=== PATIENT | male | born 1960 | race Caucasian/White ===

== ENCOUNTER 2018-12-30 13:51 | Inpatient (IN) | payer MEDICAID, SELFPAY ==
[~2018-12-30] VITALS: Ht 180.3 cm; Wt 89.9 kg
[~2018-12-30 13:51] MED LIST: ETOMIDATE 20 MG/10 ML ONE; PROPOFOL 10 MG/ML, 100ML IV ONE; PROPOFOL 10 MG/ML, 20ML ONE; SUCCINYLCHOLINE 20 MG/ML, 10ML ONE; VECURONIUM 10 MG ONE
--- NOTE | 2018-12-30 14:15 | NUR ---
PT BIB EMS ACCOMPANIED BY LAW ENFORCEMENT FOR SI AND OVERDOSE. PER EMS PT CONSUMED SERTRALINE 50 MG 100 TABS AND CLONAZEPAM 1 MG 45 TABS W FILL DATES ON 12/26/18. BOTTLES EMPTY. PT WAS COMBATIVE AND VIOLENT W LAW ENFORCEMENT, PT RESTRAINED. ABRASION TO RIGHT UPPER ARM AND BACK. PT VS STABLE IN ROUTE, MEDICATIONS GIVEN, 2 VERSED, 300 CODEINE. PT ON GURNEY W RESTRAINTS. PT IS AROUSABLE, BUT FALLS ASLEEP QUICKLY, MUMBLES WORDS. VS STABLE. MD AT BEDSIDE. PANTS AND BELT IN BELONGINGS BAG. PT ON LEGAL HOLD. PT TRANSFERED TO TRAUMA ROOM Addendum: 12/30/18 at 1454 by [facility] GAVE 300 MG OF KETAMINE, NOT CODEINE. ALLERGY TO CODEINE.
--- NOTE | 2018-12-30 14:15 | NUR ---
PT UNCOOPERATIVE AND THRASHING. PT PLACED ON ENDOSCOPY NURSE. PER MD INTUBATE DUE TO DRUG OD. 20MG IV ATOMODATE GIVEN BY MD, 100MG SUCCHOLINE IV GIVEN. 8 ET TUBE, 24CM AT THE LIP, TUBE CHECKED AND SECURED BY RT BRASHER.
[2018-12-30] MEDS: ALBUTEROL/IPRATROPIUM 2.5MG/0.5MG, 3 ML INLINE SCH ×3 (14:18→23:00)
[2018-12-30] MEDS ORDERED: PROPOFOL 100 ML IV SCH (14:30)
[2018-12-30] MEDS ORDERED: SUCCINYLCHOLINE 20 MG/ML, 10ML IV ONE (14:30)
[2018-12-30] MEDS ORDERED: ETOMIDATE 20 MG/10 ML IVPush ONE (14:30)
[2018-12-30] MEDS ORDERED: PROPOFOL 10 MG/ML, 20ML IVPush ONE (14:30)
[2018-12-30] MEDS ORDERED: FENTANYL PF 100 MCG/2ML ONE (14:37)
[2018-12-30 14:47] LABS: BASOPHILS # (AUTO) 0.06 x10^3/uL (0-0.1); BASOPHILS % (AUTO) 1 % (0-1); EOSINOPHILS # (AUTO) 0.13 x10^3/uL (0-0.4); EOSINOPHILS % (AUTO) 1 % (1-7); LYMPHOCYTES # (AUTO) 2.15 x10^3/uL (1-3.4); LYMPHOCYTES % (AUTO) 21 % (22-44); MD NO; MEAN CORPUSCULAR HEMOGLOBIN 36.1 pg (27.5-34.5); MEAN CORPUSCULAR HGB CONC 33.8 g/dL (33.2-36.2); MEAN CORPUSCULAR VOLUME 106.8 fL (81-97); MEAN PLATELET VOLUME 7.2 fL (7.4-10.4); MONOCYTES # (AUTO) 0.64 x10^3/uL (0.2-0.8); MONOCYTES % (AUTO) 6 % (2-9); NEUTROPHILS # (AUTO) 7.13 x10^3/uL (1.8-6.8); NEUTROPHILS % (AUTO) 71 % (42-75); PLATELET COUNT 259 x10^3/uL (130-400); RED BLOOD COUNT 5.34 x10^6/uL (4.38-5.82); RED CELL DISTRIBUTION WIDTH 14.7 % (9.4-14.8)
[2018-12-30 14:54] LABS: ALBUMIN 3.5 g/dL (3.4-5.0); ANION GAP 4 mmol/L (5-15); CALCIUM 8.4 mg/dL (8.5-10.1); CHLORIDE 115 mmol/L (98-107)
[2018-12-30 14:58] LABS: AMPHETAMINE SCREEN, URINE Negative (Negative); BARBITURATE SCREEN, URINE Negative (Negative); BENZODIAZEPINE SCREEN, URINE Positive (Negative); CANNABINOID SCREEN, URINE Positive (Negative); COCAINE SCREEN, URINE Negative (Negative); METHADONE SCREEN, URINE Negative (Negative); OPIATE SCREEN, URINE Negative (Negative)
[2018-12-30 14:59] LABS: ALANINE AMINOTRANSFERASE 29 U/L (12-78); ALKALINE PHOSPHATASE 61 U/L (45-117); BILIRUBIN,TOTAL 0.4 mg/dL (0.2-1.0); CREATININE 0.75 mg/dL (0.7-1.3); SALICYLATE LEVEL 5.5 mg/dL (2.8-20.0); TOTAL PROTEIN 6.9 g/dL (6.4-8.2)
[2018-12-30] MEDS ORDERED: THIAMINE 100MG TABLET PO ONE (15:00)
[2018-12-30] MEDS ORDERED: SENNA 176 MG/5 ML ORAL SOL NG PRN (15:00)
[2018-12-30] MEDS ORDERED: DEXTROSE 4 GM TAB.CHEW PO PRN (15:00)
[2018-12-30] MEDS ORDERED: DEXTROSE 50%, 50ML SYRINGE IVPush PRN (15:00)
[2018-12-30] MEDS ORDERED: HEPARIN 5,000 UNITS/ML, 1ML SQ SCH (15:00)
[2018-12-30] MEDS ORDERED: FENTANYL PF 100 MCG/2ML IVPush ONE (15:00)
[2018-12-30] MEDS ORDERED: BISACODYL 10 MG SUPP PR PRN ×2 (15:00→15:30)
[2018-12-30] MEDS ORDERED: LIDOCAINE-MPF 1%, 2ML ENDO PRN (15:00)
[2018-12-30] MEDS ORDERED: SODIUM CHLORIDE 0.9% 1,000ML IV SCH (15:00)
[2018-12-30] MEDS ORDERED: GLUCAGON 1 MG IM PRN (15:00)
[2018-12-30] MEDS ORDERED: PHARMACY MAY ADJ FOR RENAL FX MC SCH (15:00)
[2018-12-30] MEDS ORDERED: LACTULOSE 20 GM/30 ML UDC NG PRN (15:00)
[2018-12-30] MEDS ORDERED: SENNA/DOCUSATE TABLET NG PRN (15:00)
[2018-12-30] MEDS: SODIUM CHLORIDE 0.9% 1,000 ML IV SCH ×3 (15:04→23:04)
[2018-12-30] MEDS: FENTANYL PF 100 MCG/2ML IVPush PRN ×2 (15:29→18:43)
[2018-12-30] MEDS ORDERED: hydrALAzine 20 MG/ML, 1ML IVPush PRN (15:30)
[2018-12-30] MEDS ORDERED: ACETAMINOPHEN 325 MG TABLET PO PRN (15:30)
[2018-12-30] MEDS ORDERED: MIDAZOLAM HCL 25 MG in SODIUM CHLORIDE 0.9% 245 ML IV PRN (15:30)
[2018-12-30] MEDS ORDERED: ONDANSETRON 2MG/ML, 2ML IVPush PRN (15:30)
[2018-12-30] MEDS ORDERED: POLYETHYLENE GLYCOL 17 GM PACKET PO PRN (15:30)
[2018-12-30] MEDS ORDERED: ONDANSETRON ODT 4 MG PO PRN (15:30)
[2018-12-30] MEDS ORDERED: ENALAPRILAT 1.25 MG/ML, 2ML IVPush PRN (15:30)
[2018-12-30] MEDS ORDERED: THIAMINE 200 MG in SODIUM CHLORIDE 0.9% 50 ML IV ONE (15:30)
[2018-12-30 15:36] LABS: TROPONIN I < 0.015 ng/mL (0.000-0.045)
--- NOTE | 2018-12-30 15:37 | NUR ---
REPORT CALLED TO THE FLOOR TRANSPORTED TO CCU ON A VENT W RESP TX NO CHANGED ENROUTE
[2018-12-30] MEDS: FAMOTIDINE 20 MG/2 ML IV SCH (15:40)
[2018-12-30] MEDS: ENOXAPARIN 40 MG/0.4 ML SQ SCH (15:43)
[2018-12-30] MEDS: AMPICILLIN/SULBACTAM 1,500 MG in SODIUM CHLORIDE 0.9% 50 ML IV SCH ×2 (16:09→21:59)
[2018-12-30] MEDS: INSULIN LISPRO 100 UNITS/ML, PEN SQ-INSULIN SCH ×2 (16:17→21:00)
[2018-12-30] MEDS: PROPOFOL 100 ML IV PRN ×2 (18:11→21:54)
[2018-12-30] MEDS ORDERED: CLON1TAB11 PO (18:30)
[2018-12-30] MEDS ORDERED: SERT50TA28 PO (18:30)
[2018-12-30] MEDS ORDERED: NOREPINEPHRINE 4 MG in SODIUM CHLORIDE 0.9% 246 ML IV PRN (20:30)
[2018-12-30] MEDS ORDERED: SODIUM CHLORIDE 0.9% 1,000 ML IV ONE (20:30)
[2018-12-30] MEDS ORDERED: ALBUMIN HUMAN 5% 500 ML IV ONE (20:30)
[2018-12-30 21:09] LABS: TROPONIN I < 0.015 ng/mL (0.000-0.045)
[2018-12-30] MEDS: SODIUM CHLORIDE FLUSH 10ML SYR IVF SCH (21:22)
[2018-12-30] MEDS: MIDAZOLAM HCL 50 MG in SODIUM CHLORIDE 0.9% 240 ML IV PRN (23:36)
[2018-12-31] MEDS: FENTANYL PF 100 MCG/2ML IVPush PRN (00:58)
[2018-12-31] MEDS: PROPOFOL 100 ML IV PRN ×2 (01:31→05:24)
[2018-12-31] MEDS: FAMOTIDINE 20 MG/2 ML IV SCH (02:36)
[2018-12-31] MEDS: SODIUM CHLORIDE 0.9% 1,000 ML IV SCH (02:37)
[2018-12-31] MEDS: ALBUTEROL/IPRATROPIUM 2.5MG/0.5MG, 3 ML INLINE SCH ×2 (03:00→06:34)
[2018-12-31] MEDS: AMPICILLIN/SULBACTAM 1,500 MG in SODIUM CHLORIDE 0.9% 50 ML IV SCH (04:11)
[2018-12-31 04:25] LABS: ALANINE AMINOTRANSFERASE 27 U/L (12-78); ALBUMIN 3.2 g/dL (3.4-5.0); ANION GAP 5 mmol/L (5-15); CALCIUM 7.5 mg/dL (8.5-10.1); CHLORIDE 119 mmol/L (98-107); CREATININE 0.58 mg/dL (0.7-1.3)
[2018-12-31 04:28] LABS: ALKALINE PHOSPHATASE 49 U/L (45-117); BILIRUBIN,TOTAL 0.6 mg/dL (0.2-1.0); TOTAL PROTEIN 5.6 g/dL (6.4-8.2)
[2018-12-31 04:32] LABS: MEAN CORPUSCULAR HGB CONC 33.8 g/dL (33.2-36.2); MEAN CORPUSCULAR VOLUME 106.6 fL (81-97); MEAN PLATELET VOLUME 7.5 fL (7.4-10.4); PLATELET COUNT 197 x10^3/uL (130-400); RED BLOOD COUNT 4.35 x10^6/uL (4.38-5.82); RED CELL DISTRIBUTION WIDTH 14.9 % (9.4-14.8)
[2018-12-31] MEDS: MIDAZOLAM HCL 50 MG in SODIUM CHLORIDE 0.9% 240 ML IV PRN (04:57)
[2018-12-31] MEDS ORDERED: D5%-0.45% NACL 1,000 ML IV SCH (05:00)
[2018-12-31 05:04] LABS: MD YES
[2018-12-31 05:07] LABS: <PLATELET ESTIMATE> ADEQUATE; <PLT MORPHOLOGY> NORMAL PLT MORPH; <RBC MORPHOLOGY> NORMAL; EOS#(MANUAL) 0.15 x10^3/uL (0.0-0.4); EOS% (MANUAL) 2 % (1-7); LYMPH#(MANUAL) 2.07 x10^3/uL (1-3.4); LYMPHS% (MANUAL) 28 % (22-44); MONOS% (MANUAL) 4 % (2-9); REACTIVE LYMPHS # (MANUAL) 0.67 x10^3/uL (0-0); REACTIVE LYMPHS % (MANUAL) 9 % (0-0); SEG#(MANUAL) 4.22 x10^3/uL (1.8-6.8); SEGS% (MANUAL) 57 % (42-75)
[2018-12-31] MEDS: INSULIN LISPRO 100 UNITS/ML, PEN SQ-INSULIN SCH ×4 (06:39→20:12)
[2018-12-31] MEDS ORDERED: AMOXICILLIN/CLAV 1000-62.5MG TABLET ER.12H PO SCH (09:00)
[2018-12-31] MEDS: SENNA/DOCUSATE TABLET PO SCH (09:00)
[2018-12-31] MEDS ORDERED: LORazepam 1MG TABLET PO PRN ×2 (09:30)
[2018-12-31] MEDS ORDERED: LORazepam 2 MG/ML, 1ML IV PRN ×3 (09:30)
[2018-12-31] MEDS ORDERED: LORazepam 0.5MG TABLET PO PRN (09:30)
[2018-12-31] MEDS: THIAMINE 100MG TABLET PO SCH (11:09)
[2018-12-31] MEDS: FOLIC ACID 1 MG TABLET PO SCH (11:09)
[2018-12-31] MEDS: AMOXICILLIN/CLAV 875-125MG TABLET PO SCH ×2 (11:09→20:11)
[2018-12-31] MEDS: SODIUM CHLORIDE FLUSH 10ML SYR IVF SCH ×2 (11:10→20:12)
[2018-12-31] MEDS: KETOROLAC 30 MG/1 ML IV PRN ×2 (15:30→22:19)
[2018-12-31] MEDS ORDERED: KETOROLAC 30 MG/1 ML IM PRN (15:30)
[2018-12-31] MEDS: ENOXAPARIN 40 MG/0.4 ML SQ SCH (15:42)
[2018-12-31] MEDS ORDERED: NICOTINE 14MG/24 HR PATCH.TD24 TD SCH (17:00)
[2018-12-31 17:23] VITALS: BP 137/77
[2018-12-31 18:56] VITALS: BP 154/82
[2019-01-01 01:38] VITALS: BP 137/73
[2019-01-01 06:06] LABS: BASOPHILS # (AUTO) 0.07 x10^3/uL (0-0.1); BASOPHILS % (AUTO) 1 % (0-1); EOSINOPHILS # (AUTO) 0.11 x10^3/uL (0-0.4); EOSINOPHILS % (AUTO) 1 % (1-7); LYMPHOCYTES # (AUTO) 2.27 x10^3/uL (1-3.4); LYMPHOCYTES % (AUTO) 28 % (22-44); MD NO; MEAN CORPUSCULAR HEMOGLOBIN 36.3 pg (27.5-34.5); MEAN CORPUSCULAR VOLUME 106.9 fL (81-97); MEAN PLATELET VOLUME 7.4 fL (7.4-10.4); MONOCYTES # (AUTO) 0.82 x10^3/uL (0.2-0.8); MONOCYTES % (AUTO) 10 % (2-9); NEUTROPHILS # (AUTO) 4.94 x10^3/uL (1.8-6.8); NEUTROPHILS % (AUTO) 60 % (42-75); PLATELET COUNT 205 x10^3/uL (130-400); RED BLOOD COUNT 4.65 x10^6/uL (4.38-5.82); RED CELL DISTRIBUTION WIDTH 13.9 % (9.4-14.8)
[2019-01-01] MEDS: KETOROLAC 30 MG/1 ML IV PRN (06:13)
[2019-01-01 06:23] LABS: ANION GAP 5 mmol/L (5-15); CALCIUM 8.5 mg/dL (8.5-10.1); CHLORIDE 113 mmol/L (98-107); CREATININE 0.71 mg/dL (0.7-1.3)
[2019-01-01] MEDS: INSULIN LISPRO 100 UNITS/ML, PEN SQ-INSULIN SCH (07:00)
[2019-01-01 07:10] VITALS: BP 142/79
[2019-01-01] MEDS: SENNA/DOCUSATE TABLET PO SCH (08:24)
[2019-01-01] MEDS: THIAMINE 100MG TABLET PO SCH (08:25)
[2019-01-01] MEDS: AMOXICILLIN/CLAV 875-125MG TABLET PO SCH (08:25)
[2019-01-01] MEDS: FOLIC ACID 1 MG TABLET PO SCH (08:25)
[2019-01-01] MEDS: SODIUM CHLORIDE FLUSH 10ML SYR IVF SCH (08:26)
== END 2019-01-01 09:54 | disposition left against medical advice (07) | DRG 917 ==
LOC: ED 14:24 → EDIP 14:25 → ED 14:43 → CCU 15:15 → 4EST 12-31 17:20
PROVIDERS: ADMIT Internal Medicine; ATTEND Internal Medicine
PROC: 5A1935Z Respiratory Ventilation, Less than 24 Consecutive Hours (ICD-10-PCS; principal; 2018-12-30)
PROC: 0BH17EZ Insertion of Endotracheal Airway into Trachea, Via Natural or Artificial Opening (ICD-10-PCS; 2018-12-30)
DX: T43.222A Poisoning by selective serotonin reuptake inhibitors, intentional self-harm, initial encounter (principal); G93.41 Metabolic encephalopathy; J96.01 Acute respiratory failure with hypoxia; Z99.11 Dependence on respirator [ventilator] status; D75.1 Secondary polycythemia; E16.2 Hypoglycemia, unspecified; F10.129 Alcohol abuse with intoxication, unspecified; Y90.9 Presence of alcohol in blood, level not specified; F12.10 Cannabis abuse, uncomplicated; F17.200 Nicotine dependence, unspecified, uncomplicated; Z88.6 Allergy status to analgesic agent; F41.9 Anxiety disorder, unspecified; F43.21 Adjustment disorder with depressed mood; I10 Essential (primary) hypertension; M19.019 Primary osteoarthritis, unspecified shoulder; F29 Unspecified psychosis not due to a substance or known physiological condition; Y92.89 Other specified places as the place of occurrence of the external cause
CPT/HCPCS: 36415; 36600; 73030; J3490; J7620; 71045; 80048; 80053; 80307; 82803; 82962; 83605; 83735; 84478; 84484; 85025; 87070; 87077; 87081; 87181; 87184; 87205; 93005; 94002; 94003; 94640; G0378; J1650; J1885; J2250; J2704; J3010; J3411; P9045; J0295; J0330; J2060; J7030; J7050